=== PATIENT | female | born 1965 | race Caucasian/White ===

== ENCOUNTER 2017-04-18 06:53 | Observation (INO) | payer BC ==
[2017-04-18] MEDS ORDERED: LORazepam TAB(*) 1 MG ONE (07:47)
[2017-04-18 07:55] LABS: ABS Basophils 0.1 10^3/ul (0-0.2); ABS Eosinophils 0.2 10^3/ul (0-0.6); ABS Monocytes 0.3 10^3/ul (0-0.8); ABS Neutrophils 3.1 10^3/ul (1.5-7.7); ABS Nucleated RBC 0 10^3/ul; Eosinophil % 4.2 % (0-6); Hematocrit 37 % (35-47); Hemoglobin 11.5 g/dl (12.0-16.0); Mean Corpuscular HGB Conc 31 g/dl (31-36); Mean Corpuscular Hemoglobin 23 pg (27-31); Mean Corpuscular Volume 73 fL (80-97); Mean Platelet Volume 9 um3 (7.4-10.4); Nucleated Red Blood Cells % 0; Platelet Count 248 10^3/ul (150-450); Red Blood Count 5.07 10^6/ul (4.0-5.4); Red Cell Distribution Width 18 % (10.5-15); White Blood Count 5.8 10^3/ul (3.5-10.8)
[2017-04-18 08:14] LABS: INR 0.94 (0.77-1.02)
[2017-04-18 08:15] LABS: EGFR Non-African American 44.4 (>60)
[2017-04-18] MEDS ORDERED: Clindamycin 900 MG IVPREMIX(* 900 MG/50 ML SDV IV ONE (08:30)
[2017-04-18] MEDS ORDERED: Scopolamine 1.5 mg* PATCH TRANSDERM ONE (08:30)
[2017-04-18] MEDS ORDERED: Naproxen TAB* 250 MG PO ONE (08:30)
[2017-04-18] MEDS ORDERED: Lidocaine 1% INJ* 10 MG/ML 30 ML SDV ONE (08:32)
[2017-04-18] MEDS ORDERED: Heparin 2 UNITS/ML IVPREMIX* 2,000 ML IV ONE (08:32)
[2017-04-18] MEDS ORDERED: Iodixanol* (CONTRAST) 320 MG/ML 100 ML SDV ONE (08:35)
[2017-04-18] MEDS ORDERED: nitroGLYCERIN DRIP* 25,000 MCG/250 ML BTL ONE (08:39)
[2017-04-18] MEDS ORDERED: fentaNYL* 50 MCG/ML 2 ML VIAL (100 MCG VIAL) ONE ×2 (08:52→10:41)
[2017-04-18] MEDS ORDERED: Midazolam* 1 MG/ML 10 ML VIAL (10 MG) ONE (08:52)
[2017-04-18] MEDS ORDERED: oxyCODONE SR TAB(*) 10 MG TAB.SR PO ONE (09:00)
[2017-04-18] MEDS ORDERED: Ketorolac INJ* 30 MG/ML 1 ML VIAL ONE ×2 (09:20→10:34)
[2017-04-18] MEDS ORDERED: Ondansetron INJ* 2 MG/ML VIAL ONE (11:05)
[2017-04-18] MEDS ORDERED: HYDROmorphone PCA* 20 MG/20 ML PCA.SYRING ONE (11:10)
[2017-04-18] MEDS ORDERED: HYDROmorphone PCA* 20 MG/20 ML PCA.SYRING PCA SCH (13:00)
[2017-04-18] MEDS ORDERED: NS 0.9% 100 ML* 100 ML IV SCH (13:00)
[2017-04-18] MEDS: Ketorolac INJ* 15 MG/ML 1 ML VIAL IV PUSH SCH ×2 (16:02→22:28)
[2017-04-18] MEDS: Ondansetron INJ* 2 MG/ML VIAL IV SCH ×2 (16:03→22:28)
[2017-04-18] MEDS: NS 0.9% 1000 ML* 1,000 ML IV SCH ×2 (16:06→21:30)
--- NOTE | 2017-04-18 19:01 | RAD ---
CPT II Codes: 6045F Procedure(s) performed: * Pelvic arteriography. * Catheter arteriography of the bilateral uterine arteries. * Catheter embolization of the bilateral uterine arteries. Date of service: April 18, 2017 Indication for procedure: Heavy menstrual bleeding in the presence of adenomyosis Comparison: MRI of the pelvis March 12, 2016 Contrast: 100 mL Visipaque 320 Fluoroscopy Time: 19 minutes Vessels Accessed: Percutaneous access was obtained with ultrasound guidance in the right common femoral artery in the retrograde. Catheter arteriography, with the catheter tip located within the lumen of the following arteries, was performed at the right common iliac artery, bilateral internal iliac arteries and bilateral uterine arteries. Anesthesia: Conscious sedation with IV Fentanyl and Versed as well as local 1% lidocaine injected locally at the arteriotomy site. Conscious sedation time: Timeout: 11 hours Case end: 1043 hours Total conscious sedation time: 1 hour and 33 minutes Additional medications: * IA nitroglycerin injected intermittently throughout the course of the procedure to alleviate arterial spasm. * Intra-arterial Toradol, 15 mg injected into each uterine artery, for a total of 30 mg intra-arterial. * Intravenous Toradol, 30 mg. * Transdermal scopolamine patch 1.5 mg applied to the mastoid process prior to the procedure beginning. * A total of 4 mg Zofran was administered intravenously. * The patient received Ativan 1 mg p.o., Naprosyn 250 mg and OxyContin 10 mg p.o. prior to the onset of the procedure. PROCEDURE NOTE AND INTRAPROCEDURAL IMAGING FINDINGS: Immediately prior to the procedure the patient signed consent after thoroughly discussing all risks and benefits. The patient was positioned on the fluoroscopy table in the supine position and the bilateral groins were shaved, prepped and draped in standard sterile fashion. Using fluoroscopic imaging the location of the right common femoral head was marked externally with a skin marker on the patient's groin. Utilizing sonographic guidance and palpation the right common femoral artery was cannulated overlying the right femoral head with an 18 age needle. An ultrasound image was saved. A 0.035 inch Bentson wire was slowly and smoothly advanced to the aortic bifurcation under fluoroscopic imaging. No buckling of the wire was visualized to indicate dissection. Over the wire a 5-Micronesian SideArm sheath was advanced under fluoroscopic control until the tip terminated in the right external iliac artery. Over the wire a 5-Micronesian C2 catheter was advanced to the iliac bifurcation and utilized to access the left common iliac artery. The wire was advanced to the left common femoral artery, the C2 catheter removed and over the wire a 5-Micronesian Merit Empress catheter was advanced over the bifurcation and the loop formed at the lower abdominal aorta. With the loop formed and the wire within the catheter, the system was slowly retracted gaining access to the ipsilateral right common iliac artery. Contrast angiography with the tip of the 5-Micronesian catheter in the proximal most portion of the right common iliac artery demarcated the branch point of the right internal iliac artery. Utilizing arteriography as a guide the tip of the catheter was advanced into the right internal iliac artery. Contrast arteriography was then performed with the tip of the 5-Micronesian catheter in the right internal iliac artery to identify the origin of the right uterine artery. Once the uterine artery was identified, a Renegade High-flow microcatheter and microwire were advanced into the parent catheter and, in conjunction with contrast angiography, the uterine artery was identified and selected with the microcatheter. Prior to embolization, contrast injection into the horizontal portion of the uterine artery demonstrated no large, obvious collateral blood flow to the ovary or a definite cervicovaginal branch descending inferiorly. Intra-arterial nitroglycerin was injected intermittently to alleviate arterial spasm. Under fluoroscopic control approximately 1 and 1/4 vials of ViralGains PVA-200 particles were slowly injected into the uterine artery to near complete stasis. [place] through the embolization 15 mg of Toradol was injected intra-arterially. The microcatheter was pulled back into the more proximal descending portion of the uterine artery and contrast angiography depicted near complete stasis of the uterine artery. The microcatheter was removed and arteriography performed with the tip of the 5-Micronesian catheter in the right internal iliac artery demonstrated no flow in the right uterine artery and patency in the remaining artery branches of the right internal iliac artery. The Empress catheter was pushed cephalad to form the loop in the lower abdominal aorta, a 0.035 inch hydrophilic wire was advanced into the catheter and the system was utilized to access the left internal iliac artery. Utilizing the 0.035 inch glide wire and the 5-Micronesian catheter the left uterine artery was cannulated directly. Once the uterine artery confirmed with arteriography, a Renegade High-flow microcatheter and microwire were advanced into the parent catheter and advanced into the horizontal portion of the left uterine artery. Arteriography through the microcatheter demonstrates a small branch artery partially providing flow to the left ovary. The length and tortuosity of the uterine artery indicated it was not going to be possible to push the catheter beyond the branch point of this artery partially feeding the left ovary. Considering the patient's perimenopausal state and the fact that no branch arteries were seen on the right the decision was made to proceed with embolization. Intra-arterial nitroglycerin was injected intermittently to alleviate arterial spasm. Under fluoroscopic control the remaining 3/4 vial of Cook PVA-200 particles followed by 1 vial of 700-900 micron Embospheres were slowly injected into the uterine artery to near complete stasis. [place] through the embolization 15 mg of Toradol was injected intra-arterially. The microcatheter was pulled back into the more proximal descending portion of the uterine artery and contrast angiography depicted near complete stasis of the uterine artery. The microcatheter and wire were removed. The 5-Micronesian catheter was drawn back into the tip was in the more proximal left internal iliac artery and arteriography was performed demonstrating stasis of flow in the left uterine artery and brisk patent flow through the remaining branches of the internal iliac artery and the left. The 0.035 inch wire was reinserted into the 5-Micronesian catheter and both were removed under fluoroscopic control. The access sheath was removed and pressure was held at the common femoral arteriotomy for approximately 15 minutes. There were no signs of bleeding at the right groin access site and the site was dressed with sterile gauze and Tegaderm. The patient tolerated the procedure well and was transferred to the short stay recovery unit in stable condition for routine overnight observation and pain and nausea control. SUMMARY OF PROCEDURE, IMAGING FINDINGS AND INTERVENTIONS PERFORMED: 1. Diagnostic studies performed: * Arterial access was obtained at the right common femoral artery in the retrograde direction (i.e. towards the heart) with ultrasound guidance. A sonographic image was recorded. * Diagnostic catheter angiography (necessary to perform the appropriate interventions) was performed with the catheter tip in the right common iliac artery, bilateral internal iliac arteries and bilateral uterine arteries. * Catheter arteriography was performed of the bilateral internal iliac arterial system and specifically the bilateral uterine arteries. 2. Interpretation of diagnostic studies performed: * Angiography reveals a large, bulky and hypervascular uterus consistent with adenomyosis. 3. Surgical interventions performed: * Near stasis embolization of the bilateral uterine arteries utilizing 2 vials Cook PVA-200 and 1 vial 700-900 micron Embospheres. 4. Interpretation of interventions performed: * Final arteriography demonstrated near complete stasis of the bilateral uterine arteries.. PLAN: 1. The patient will be admitted to short stay surgical unit for routine overnight observation including pain and nausea control. 2. Outpatient clinical and imaging follow-up according to the Interventional Radiology protocol.
--- NOTE | 2017-04-18 19:48 | PN ---
Progress Note - Progress Note Date of Service: 04/18/17 SOAP: Subjective: Hernan at bedside. Patient currently without pain or nausea complaints. Ate most of her dinner tray. +Ambulated with assistance. +void after Dozier d/c. 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 Pain and nausea are well controlled. Plan: 1. Routine overnight observation per Interventional Radiology protocol. 2. Transition from IV to PO medications tomorrow a.m.
--- NOTE | 2017-04-18 23:33 | HP ---
CC: Elsi Pleitez NP; Dontrell Inman MD * HISTORY AND PHYSICAL: DATE OF ADMISSION: 04/18/17 PRIMARY CARE PROVIDER: Elsi Pleitez NP ATTENDING PHYSICIAN: Meliza Cancino DO * (dictated by Corinne Mercedes NP) CHIEF COMPLAINT: Heavy and unpredictable vaginal bleeding and pelvic pain. HISTORY OF PRESENT ILLNESS: Ms. Arroyo is a 51-year-old female with past medical history significant for endometriosis, hyperlipidemia, hypothyroidism, depression who has been in her usual state of health and presented to the hospital today for an elective uterine artery embolization for adenomyosis. The patient states that she has had 1 year of heavy and unpredictable vaginal bleeding and pelvic pain. In May 2015, she had had cessation of "normal periods" for 3 to 4 months with episodes of hot flashes and she felt as though she was undergoing menopause. Her periods were resumed that spring which were more heavy and more painful. In early February 2016, she experienced a week of severe vaginal bleeding and required 1 full box each of tampons and pads. During March 2016, she continued to have a similar occurrence. She continued to have lower abdominal pain and episodes of urinary incontinence. She denies any fever, chills, chest pain, shortness of breath, nausea, vomiting , diarrhea. The patient had initially seen Dr. Inman in March 2016 for an initial consultation and then had a consultation with Dr. Hoffmann about possible endometrial ablation. She has since decided to undergo uterine artery embolization. PAST MEDICAL HISTORY: 1. Endometriosis of the uterus. 2. Hyperlipidemia. 3. Hypothyroidism. 4. Depression. 5. Thyroid nodule. 6. Sudarshan's thyroiditis. 7. Insomnia. 8. Genital HSV. 9. Anxiety. PAST SURGICAL HISTORY: 1. Status post section. 2. Status post right parotid gland resection. 3. Status post bilateral reduction mammoplasty. 4. Status post ear surgery. HOME MEDICATIONS: Include: 1. Levothyroxine 75 mcg oral daily. 2. Wellbutrin XL 150 mg oral daily. 3. Valacyclovir 500 mg oral daily. 4. Sertraline 100 mg oral daily. ALLERGIES: No known drug allergies. FAMILY HISTORY: The patient's father has a history of prostate and lung cancer , hyperthyroidism. The patient's mother is healthy. She has a daughter who is a type 1 diabetic. She denies any family history of heart disease. SOCIAL HISTORY: The patient denies tobacco or recreational drug use. She consumes 3 to 5 alcoholic beverages weekly. Her , Hernan Arroyo, will be her surrogate decision maker in the event she is unable to make decisions for herself. REVIEW OF SYSTEMS: I performed an 11-point review of systems. All the pertinent positives and negatives are mentioned in the history of present illness. The remaining review of systems are negative. PHYSICAL EXAMINATION GENERAL APPEARANCE: The patient is drowsy and appears to be in no acute distress. VITAL SIGNS: Temperature 99.1, heart rate 66, respiratory rate 18, O2 sat 96% on 2 L via nasal cannula, blood pressure 128/82. HEENT: Normocephalic, atraumatic. RESPIRATORY: There is no accessory muscle use. The lungs are clear to auscultation, bilateral. CARDIOVASCULAR: Regular rate and rhythm. S1 and S2 present. There are no murmurs, rubs, or gallops heard. ABDOMEN: Soft, nontender, nondistended. There are bowel sounds present x4. EXTREMITIES: There is no lower extremity edema. DP and PT pulses are 2+ and symmetric. MUSCULOSKELETAL: There is no clubbing or cyanosis noted. The patient exhibits good strength in all extremities. NEUROLOGICAL: The patient is alert and oriented x4, although she is drowsy due to previous sedation. Cranial nerves II through XII are grossly intact. PSYCHOLOGICAL: The patient is calm and cooperative. SKIN: There are no rashes or abnormalities seen. LABORATORY DATA: Sodium 138, potassium 4.0, chloride 106, CO2 26, BUN 15, creatinine 1.27, and glucose 94. White blood cell count 5.8, hemoglobin 11.5, hematocrit 37, platelet count 248. IMPRESSION: Ms. Arroyo is a 51-year-old female with past medical history significant for hyperlipidemia, hypothyroidism with Sudarshan's thyroiditis, endometriosis of the uterus, depression, anxiety, and adenomyosis who presented to the hospital for an elective uterine artery embolization today. She will be admitted as an observation. ASSESSMENT AND PLAN: 1. Adenomyosis. The patient is status post uterine artery embolization by Dr. Dontrell Inman today. She will be on bed rest until 3 o'clock. Then, she will be activity as tolerated. She will have Dozier catheter in place until 6 p.m. tonight at which time it will be removed. She will have a Dilaudid SHERIFF SERGEANT overnight in addition to standing Toradol IV and standing Zofran. 2. Acute kidney injury. The patient's creatinine is above her baseline. I suspect this is in the setting of dehydration, not drinking well overnight. She will receive IV fluid overnight. We will recheck her labs in the morning. 3. Hypothyroidism. The patient will be continued on her home levothyroxine. 4. Anxiety, depression. The patient will be continued on her home Zoloft and Wellbutrin. 5. Genital herpes simplex virus. The patient will be continued on her home Valtrex. 6. Fluids, electrolytes, and nutrition. The patient will be on clear liquid diet as tolerated to a regular diet. 7. Code status. Full code. 8. DVT prophylaxis. The patient is a low risk and will have SCDs until she is able to ambulate and she will be encouraged to ambulate. 9. Disposition. Observation. TIME SPENT: Time for this admission was approximately 60 minutes, greater than half of that was spent with the patient discussing medications, past medical history, and events leading up to her arrival today, performing physical examination. The case has been reviewed with the attending, Dr. Cancino, who agrees with the plan of care. Reviewed by MARILYN CROOKS 04/23/17 1930 [id number]/[facility] #: [id number] FARHAD
[2017-04-19] MEDS: NS 0.9% 1000 ML* 1,000 ML IV SCH ×2 (03:30→08:33)
[2017-04-19] MEDS: Ondansetron INJ* 2 MG/ML VIAL IV SCH (04:51)
[2017-04-19] MEDS: Ketorolac INJ* 15 MG/ML 1 ML VIAL IV PUSH SCH (04:56)
[2017-04-19] MEDS ORDERED: Levothyroxine TAB* 75 MCG TAB PO SCH (06:00)
[2017-04-19 06:38] LABS: EGFR Non-African American 53.5 (>60)
[2017-04-19 07:55] VITALS: BP 122/72
--- NOTE | 2017-04-19 08:59 | PN ---
Progress Note - Progress Note Date of Service: 04/19/17 SOAP: Due to inclement weather I did not drive into [facility] to round on Mrs. Arroyo. Instead I spoke with the medical staff assistant, JEAN Sands and spoke to the patient directly on her in room telephone. Subjective: Patient reports mild intermittent "crampy" pain (2/10 or less), but overall no significant pain at this time. Denies pain or firmness at the right groin arteriotomy site. No nausea or emesis. Has been ambulating independently to go to the bathroom. Has been eating meals and drinking without issue. Objective: Selected Entries 04/19/17 07:43 Temperature 98.5 F Temperature Oral Source Pulse Rate 66 Respiratory 16 Rate Blood Pressure 122/72 (mmHg) Blood Pressure 88 Mean O2 Sat by Pulse 99 Oximetry Patient on Room Yes Air Assessment: 51 YOF POD #1 s/p Uterine Artery Embolization to treat heavy menstrual bleeding due to Adenomyosis. Plan: 1. Discharge to home. 2. Routine Interventional Radiology follow up will include RN clinic follow up telephone calls 04/21/17 and 04/25/17 and clinic follow up in 6 weeks and 6 months. 3. Outpatient Rx regimen will include: Toradol 10 mg PO Q 6 hours x 3 days, dispense #15, 1 refill AFTER 3 days of Toradol, start Naproxen 250 mg PO every 12 hours x 3 days (DO NOT COMBINE TORADOL AND NAPROXEN) [place] 5/325 1 or 2 tablets PO Q 6 hours PRN x 5 days, dispense #30, no refills Zofran 4 mg PO Q 6 hours x 5 days, dispense #30, 1 refill Scopoloamine 1.5 mg TD patch: on the morning of Friday, replace current patch with new patch and wear x 3 days 4. Patient advised to purchase laxative tea (E.g. Smooth Move) and drink one cup daily x 1 week to avoid constipation.
[2017-04-19] MEDS ORDERED: ValACYclovir (*) 500 MG TAB PO SCH (09:00)
[2017-04-19] MEDS ORDERED: Sertraline* 25 MG TAB PO SCH (09:00)
[2017-04-19] MEDS ORDERED: BuPROPion XL* 150 MG TAB.XL PO SCH (09:00)
--- NOTE | 2017-04-19 09:02 | PN ---
Subjective Date of Service: 04/19/17 Interval History: Patient seen and examined at bedside. Denies fever, chills, shortness of breath , chest discomfort, N/V/D. Pt states that her pain is controlled. Tolerating a regular diet. Family History: Unchanged from Admission Social History: Unchanged from Admission Past Medical History: Unchanged from Admission Objective Active Medications: Bupropion HCl (Wellbutrin Xl *) 150 mg PO QAM PEDRO PABLO Hydromorphone HCl (Dilaudid Centerless Grinding Machine Adjuster*) 20 mg in 20 mls @ 0 mls/hr ANALYSIS OR RESEARCH SAFETY INSPECTOR .Q24H PEDRO PABLO; Per Protocol Sodium Chloride (Ns 0.9% 1000 Ml*) 1,000 mls @ 200 mls/hr IV PER RATE PEDRO PABLO Ketorolac Tromethamine (Toradol Inj*) 10 mg IV PUSH Q6H PEDRO PABLO Levothyroxine Sodium (Synthroid Tab*) 75 mcg PO 0600 PEDRO PABLO Ondansetron HCl (Zofran Inj*) 4 mg IV Q6H [facility] Pharmacy Profile Note (Scopolamine Patch Remove*) 1 note PATCH OFF Q72H PEDRO PABLO Sertraline HCl (Zoloft*) 100 mg PO QAM PEDRO PABLO Valacyclovir HCl (Valtrex 500 Mg (*)) 500 mg PO DAILY [facility] Vital Signs - 8 hr 04/19/17 04/19/17 04/19/17 03:30 03:31 05:09 Temperature 98.2 F Pulse Rate 70 Respiratory 16 16 16 Rate Blood Pressure 125/71 (mmHg) O2 Sat by Pulse 99 100 96 Oximetry 04/19/17 04/19/17 07:15 07:43 Temperature 98.5 F Pulse Rate 66 Respiratory 16 16 Rate Blood Pressure 122/72 (mmHg) O2 Sat by Pulse 100 99 Oximetry Oxygen Devices in Use Now: Nasal Cannula Appearance: NAD, laying in bed. Ears/Nose/Mouth/Throat: Mucous Membranes Moist Respiratory: Symmetrical Chest Expansion and Respiratory Effort, Clear to Auscultation Cardiovascular: NL Sounds; No Murmurs; No JVD, RRR Abdominal: NL Sounds; No Tenderness; No Distention Extremities: No Edema, - - Right groin is soft and non-tender Skin: No Rash or Ulcers, - - Dressing to right groin clean, dry and intact Neurological: Alert and Oriented x 3, NL Muscle Strength and Tone Lines/Tubes/Other Access: Clean, Dry and Intact Peripheral IV - site benign Nutrition: Taking PO's Result Diagrams: 04/18/17 07:34 04/19/17 06:15 Assess/Plan/Problems-Billing Assessment: Ms. Arroyo is a 51 yo female with PMH significant for HLD, hypothyroidism, anxiety, depression and adenomyosis of the uterus who presented to the hospital for an elective uterine fibroid embolization. - Patient Problems (1) Adenomyosis Code(s): N80.0 - ENDOMETRIOSIS OF UTERUS SNOMED Code(s): 719744890 Comment: - of Uterus - Pain and nausea controlled - Switch meds to PO (2) SHON (acute kidney injury) Code(s): N17.9 - ACUTE KIDNEY FAILURE, UNSPECIFIED SNOMED Code(s): 70240757 Comment: - Acute on chronic - Creatinine back to baseline after IVFs (3) Hypothyroidism Code(s): E03.9 - HYPOTHYROIDISM, UNSPECIFIED SNOMED Code(s): 16762834 Comment: - Continue levothyroxine (4) Anxiety and depression Code(s): F41.8 - OTHER SPECIFIED ANXIETY DISORDERS SNOMED Code(s): 423495281 Comment: - Continue zoloft and wellbutrin (5) Genital HSV Code(s): A60.00 - HERPESVIRAL INFECTION OF UROGENITAL SYSTEM, UNSPECIFIED SNOMED Code(s): 09428981 Comment: - History - Continue Valtrex (6) DVT prophylaxis Code(s): HGK8459 - SNOMED Code(s): 869518380 Comment: - Ambulate (7) Full code status Code(s): Z78.9 - OTHER SPECIFIED HEALTH STATUS SNOMED Code(s): 730034396 Status and Disposition: OBV. Stable for discharge to home.
[2017-04-19] MEDS ORDERED: HYDROcodone/ACETAMIN 5-325 MG* 1 TAB PO PRN (09:12)
[2017-04-19] MEDS ORDERED: Ondansetron TAB* 4 MG PO SCH (09:20)
[2017-04-19] MEDS ORDERED: Ketorolac TAB * 10 MG TAB PO SCH (09:20)
--- NOTE | 2017-04-20 06:44 | DS ---
CC: Dr. Dontrell Inman; Elsi Pleitez NP.* DISCHARGE SUMMARY: DATE OF ADMISSION: 04/18/17 DATE OF DISCHARGE: 04/19/17 ATTENDING PHYSICIAN: Dr. Gosia Enriquez * (dictated by Corinne Mercedes NP) PRIMARY CARE PROVIDER: Elsi Pleitez NP PRIMARY DIAGNOSIS: Adenomyosis status post uterine artery embolization. SECONDARY DIAGNOSES: 1. Hyperlipidemia. 2. Hyperthyroidism. 3. Depression. 4. Thyroid nodule and Sudarshan's thyroiditis. 5. Insomnia. 6. Genital HSV. 7. Anxiety. HISTORY OF PRESENT ILLNESS AND HOSPITAL COURSE: Ms. Arroyo is a 51-year-old female with past medical history significant for endometriosis, hyperlipidemia, hypothyroidism, depression, anxiety who has been in her usual state of health and presented to the hospital for an elective uterine artery embolization for adenomyosis. She has been having over a year of heavy periods, initially had a consultation with Dr. Inman in March 2016 to discuss her options to deal with her heavy and unpredictable vaginal bleeding and pelvic pain. She also had a consultation with Dr. Hoffmann about the possible endometrial ablation. The patient ultimately decided to undergo a uterine artery embolization with Dr. Inman. While in the hospital, the patient underwent her uterine artery embolization. Her pain has been controlled. Her nausea has been controlled. She is eating and ambulating around without difficulty. She was noted to have an elevated creatinine on arrival labs and this improved down to the patient's baseline with hydration. It was felt at that Ms. Arroyo was stable for discharge to home today. Vital signs are as follows: Temperature 98.5, heart rate 66, respiratory rate 16, O2 sat 99% on room air, blood pressure 122/72. DISCHARGE PLAN: Ms. Arroyo will be discharged to home. ACTIVITY: As tolerated. DIET: She will be on a regular diet. As far as pain control, she will be taking Toradol 10 mg oral daily every 6 hours for the next 3 days followed by 3 days of Naproxen 250 mg oral every 12 hours. She has been instructed not to combine Toradol and naproxen. She will also have available [place] 5/325 one or two tablets by mouth every 6 hours as needed for pain for 5 days. I-STOP was checked with reference #[id number]. For nausea, she will take Zofran 4 mg oral every 6 hours for 5 days and have a scopolamine patch in place that she will change on Friday and then wear for an additional 3 days. She is instructed to purchase Smooth Move tea and to drink 1 cup weekly to avoid constipation. Dr. Inman's office will call her Friday morning to hourly caregiver her a 6- week followup appointment. She will also have a 6 month followup appointment. She can see her primary care provider as needed. She has been asked to return to the emergency room for any chest pain or shortness of breath. This is a summarized report of a complex medical history and hospital stay. For further details, please see the entire medical record. TIME SPENT: Time for this discharge was approximately 50 minutes, greater than half of that was spent [id number] with the patient discussing discharge plans and instructions. CONDITION ON DISCHARGE: Stable. Reviewed by MARILYN CROOKS 04/23/17 193 [id number]/[facility] #: [id number] FARHAD
[2017-04-21] MEDS ORDERED: Scopolamine PATCH Remove* 1 NOTE MISC PATCH OFF SCH (09:00)
== END 2017-04-19 10:40 | disposition home or self-care (01) ==
LOC: CHICATH 06:53 → UNDOADMOB 11:52 → SSU 11:52
PROVIDERS: ADMIT Internal Medicine; ATTEND Internal Medicine
DX: N80.0 Endometriosis of uterus (principal); N92.0 Excessive and frequent menstruation with regular cycle; N17.9 Acute kidney failure, unspecified; E03.9 Hypothyroidism, unspecified; E78.5 Hyperlipidemia, unspecified; E05.90 Thyrotoxicosis, unspecified without thyrotoxic crisis or storm; E06.3 Autoimmune thyroiditis; F32.9 Major depressive disorder, single episode, unspecified; G47.00 Insomnia, unspecified; A60.00 Herpesviral infection of urogenital system, unspecified; F41.9 Anxiety disorder, unspecified; Z79.899 Other long term (current) drug therapy
CPT/HCPCS: 36415; 37243; 76937; 80048; 84702; 85025; 85610; 85730; 96374; 96375; 99156; 99157; A9270-GY; C1725; C1884; C1887; G0378; J1170; J1644; J1885; J2250; J2405; J3010